=== PATIENT | male | born 1950 | race Caucasian/White ===

== ENCOUNTER 2020-10-21 20:17 | Emergency (ER) | payer MEDICARE, MEDICAID, SELFPAY ==
[2020-10-21 20:20] VITALS: BP 177/82; PULSE 75; RESP 16; TEMP 36.8; O2SAT 99; BMI 22.8
--- NOTE | 2020-10-21 20:29 | XR_ITS ---
EXAMINATION: XR CHEST CLINICAL INFORMATION: Shortness of breath COMPARISON: Chest x-ray 01/30/2020 TECHNIQUE: Frontal view of the chest was obtained. FINDINGS: Cardiac silhouette is normal in size. The lungs are well aerated. There is no lobar consolidation. No pleural effusion or pneumothorax. XR/XR chest 1V IMPRESSION: No acute pulmonary pathology.
--- NOTE | 2020-10-21 20:30 | ECG_ITS ---
Test Reason : SOB Blood Pressure : / mmHG Vent. Rate : 063 BPM Atrial Rate : 063 BPM P-R Int : 160 ms QRS Dur : 084 ms QT Int : 432 ms P-R-T Axes : 066 -06 052 degrees QTc Int : 442 ms Normal sinus rhythm Septal infarct , age undetermined Abnormal ECG When compared with ECG of 09-MAY-2019 21:31, No significant change was found Referred By: Diego Vivar Electronically Signed By:Jose G Guerrero
[2020-10-21] MEDS: 0.9 % Sodium Chloride 1,000 ML 999 ML IVCONT (20:50)
[2020-10-21 21:06] LABS: Eosinophils Percent Auto 0.4 % (0-4); Hemoglobin 13.3 g/dl (14.0-18.0); Imm Gran Abs Auto 0.01 X10*3/uL (0.00-0.03); Imm Gran Pct Auto 0.2 % (0.0-0.4); MANUAL DIFF FLAG SCAN; Neutrophils Percent Auto 57.6 % (45-73); PLT CLUMP 1; SCAN SMEAR FLAG 1
[2020-10-21 21:08] LABS: Basophils Percent Auto 0.4 % (0-2); Hematocrit 38.6 % (42-52); Lymphocytes Absolute Auto 1.7 X10*3/uL (1.2-4.9); Lymphocytes Percent Auto 33.9 % (20-40); Mean Corpuscular HGB Conc 34.5 g/dl (31.0-36.0); Mean Corpuscular Hemoglobin 31.6 pg (27.0-33.0); Mean Corpuscular Volume 91.7 fL (80-98); Mean Platelet Volume 10.7 fL (9.4-12.4); Monocytes Absolute Auto 0.4 X10*3/uL (0.1-1.2); Monocytes Percent Auto 7.5 % (2-11); Neutrophils Absolute Auto 2.9 X10*3/uL (2.0-8.3); Platelet Count 117 X10*3/uL (160-400); Red Blood Count 4.21 X10*6/uL (4.60-5.80); Red Cell Distribution Width 12.8 % (11.0-16.0); White Blood Count 5.1 X10*3/uL (4.8-10.8)
[2020-10-21 21:11] LABS: SLIDE REVIEW VERIFIED
[2020-10-21 21:22] VITALS: BP 177/88; PULSE 59; RESP 14; TEMP 36.8; O2SAT 97
[2020-10-21 21:50] LABS: Influenza A PCR NEGATIVE (Negative); Influenza B PCR NEGATIVE (Negative); Resp Syncy Virus RNA Qual PCR NEGATIVE (Negative); SARS COV2 PCR INHOUSE NEGATIVE (Negative)
[2020-10-21 22:01] LABS: Alanine Aminotransferase 34 U/L (0-40); Albumin Level 4.1 g/dL (3.5-5.0); Alkaline Phosphatase 64 U/L (39-117); Anion Gap 12 (12-20); Aspartate Amino Transferase 42 U/L (5-37); Bilirubin Direct 0.3 mg/dL (0.0-0.5); Bilirubin Total 0.6 mg/dL (0.0-1.0); Blood Urea Nitrogen 7 mg/dL (9-16); Calcium 8.2 mg/dL (8.4-10.2); Carbon Dioxide 26 mmol/L (22-29); Chloride 107 mmol/L (96-108); Creatinine Clr Calc Pharmacy 82.8; Estimated Glomerular Filt Rate > 60; Glucose Random 92 mg/dL (60-115); Potassium 4.1 mmol/l (3.3-5.1); Sodium 141 mmol/L (135-145)
--- NOTE | 2020-10-21 22:08 | ED.GENADULT ---
HPI - General Adult General Chief complaint: General Medical Stated complaint: SOB X'S 1WEEK, ? COVID Time Seen by Provider: 10/21/20 20:29 Source: patient Mode of arrival: EMS Limitations: no limitations History of Present Illness HPI narrative: Patient smoker complaining of shortness of breath for a while feels weak wants to know if anything else wrong smoker once COVID test. No fever no cough saturating 99% room air on arrival Onset (ago): week(s) Related Data Allergies Allergy/AdvReac Type Severity Reaction Status Date / Time No Known Allergies Allergy Unverified 07/25/20 15:48 [No Known Allergies*] Review of Systems Review of Systems: REVIEW OF SYSTEMS: Pertinent positives and negatives are stated above in the history. GEN: no fevers, chills, fatigue HEENT: no nasal congestion, sore throat, ear pain NEURO: no headache, dizziness, focal weakness PULM: Chronic cough and shortness of breath CV: no chest pain, palpitations, LE edema ABD: no abdominal pain, nausea, vomiting, diarrhea : no dysuria, urgency, frequency SKIN: no rash ROS otherwise negative x 10 PMFSH Social History Social History Alcohol intake: current Alcohol intake frequency: a few times a month Smoking Status: Current every day smoker Smoked in Last 30 Days: Yes Advance Directives: No Advance Directives Information Provided: No Physical Exam Vital Signs: Vital Signs: Last Vital Signs Temp 98.3 F 10/21/20 21: Pulse 59 10/21/20 21:22 Resp 14 10/21/20 21:22 BP 177/88 H 10/21/20 21:22 Pulse Ox 97 10/21/20 21:22 Body Mass Index 22.8 VITAL SIGNS: Reviewed. GENERAL: Well developed, well nourished, in no acute distress. HEAD: Normocephalic/atraumatic, EYES: PERRLA No pallor/icterus noted OROPHARYNX: Oral mucosa moist no oral lesions NECK: Supple, no adenopathy LUNGS: Normal breath sounds. No adventitious sounds or accessory muscle use CARDIOVASCULAR: Regular rate and rhythm without noted murmurs, no JVD or lower extremity edema. ABDOMEN: Soft, non-tender, non-distended with normal bowel sounds. No rigidity. No guarding. No palpable masses or hernias noted MUSCULOSKELETAL: No tenderness, deformities, EXTREMITIES: No cyanosis or edema. SKIN: no rashes, ulcerations, jaundice, pallor, or petechiae NEUROLOGIC: Alert and oriented x 3. Strength and sensation to light touch were grossly intact normal speech Medical Decision Making MDM Narrative Medical decision making narrative: Patient with nonspecific complaints complaining of shortness of breath was saturating 99% chronic smoker no acute pathology found COVID testing and negative will discharge patient home Lab Data Lab results reviewed: Yes I reviewed the patient's lab results. Result diagrams: 10/21/20 20:50 10/21/20 21:33 Labs: Lab Results 10/21/20 10/21/20 10/21/20 Range/Units 20:50 20:50 20:50 WBC 5.1 (4.8-10.8) X10*3/uL RBC 4.21 L (4.60-5.80) X10*6/uL Hgb 13.3 L (14.0-18.0) g/dl Hct 38.6 L (42-52) % MCV 91.7 (80-98) fL MCH 31.6 (27.0-33.0) pg MCHC 34.5 (31.0-36.0) g/dl RDW 12.8 (11.0-16.0) % Plt Count 117 L (160-400) X10*3/uL MPV 10.7 (9.4-12.4) fL Immature Gran % (Auto) 0.2 (0.0-0.4) % Neut % (Auto) 57.6 (45-73) % Lymph % (Auto) 33.9 (20-40) % [place] % (Auto) 7.5 (2-11) % Eos % (Auto) 0.4 (0-4) % Baso % (Auto) 0.4 (0-2) % Lymph # (Auto) 1.7 (1.2-4.9) X10*3/uL [place] # (Auto) 0.4 (0.1-1.2) X10*3/uL Eos # (Auto) 0.0 (0.0-0.4) X10*3/uL Baso # (Auto) 0.0 (0.0-0.2) X10*3/uL Abs Immat Gran (auto) 0.01 (0.00-0.03) X10*3/uL Absolute Neuts (auto) 2.9 (2.0-8.3) X10*3/uL Absolute Nucleated RBC 0.000 (0.0-0.012) X10*3/uL Nucleated RBC % (auto) 0.0 (0.0-0.2) /100WBC Smear Tech's Comments VERIFIED Sodium Cancelled Potassium Cancelled Chloride Cancelled Carbon Dioxide Cancelled Anion Gap Cancelled BUN Cancelled Creatinine Cancelled Estim Creat Clear Calc Cancelled Estimated GFR Cancelled Random Glucose Cancelled Calcium Cancelled Total Bilirubin Cancelled Direct Bilirubin Cancelled AST Cancelled ALT Cancelled Alkaline Phosphatase Cancelled Total Protein Cancelled Albumin Cancelled Coronavirus (PCR) NEGATIVE (Negative) Influenza Type A (PCR) NEGATIVE (Negative) Influenza Type B (PCR) NEGATIVE (Negative) RSV RNA Qual (PCR) NEGATIVE (Negative) 10/21/20 Range/Units 21:33 WBC (4.8-10.8) X10*3/uL RBC (4.60-5.80) X10*6/uL Hgb (14.0-18.0) g/dl Hct (42-52) % MCV (80-98) fL MCH (27.0-33.0) pg MCHC (31.0-36.0) g/dl RDW (11.0-16.0) % Plt Count (160-400) X10*3/uL MPV (9.4-12.4) fL Immature Gran % (Auto) (0.0-0.4) % Neut % (Auto) (45-73) % Lymph % (Auto) (20-40) % [place] % (Auto) (2-11) % Eos % (Auto) (0-4) % Baso % (Auto) (0-2) % Lymph # (Auto) (1.2-4.9) X10*3/uL [place] # (Auto) (0.1-1.2) X10*3/uL Eos # (Auto) (0.0-0.4) X10*3/uL Baso # (Auto) (0.0-0.2) X10*3/uL Abs Immat Gran (auto) (0.00-0.03) X10*3/uL Absolute Neuts (auto) (2.0-8.3) X10*3/uL Absolute Nucleated RBC (0.0-0.012) X10*3/uL Nucleated RBC % (auto) (0.0-0.2) /100WBC Smear Tech's Comments Sodium 141 Potassium 4.1 Chloride 107 Carbon Dioxide 26 Anion Gap 12 BUN 7 L Creatinine 0.77 Estim Creat Clear Calc 82.8 Estimated GFR > 60 Random Glucose 92 Calcium 8.2 L Total Bilirubin 0.6 Direct Bilirubin 0.3 AST 42 H ALT 34 Alkaline Phosphatase 64 Total Protein 7.0 Albumin 4.1 Coronavirus (PCR) (Negative) Influenza Type A (PCR) (Negative) Influenza Type B (PCR) (Negative) RSV RNA Qual (PCR) (Negative) ECG Data Attestation: I personally reviewed and interpreted this ECG as follows: Interpretation: Normal sinus rhythm with heart rate 63 beats per minute normal intervals normal axis poor progression of R-waves no acute ST T wave changes no acute ischemia no significant change from the previous EKG
[2020-10-21] MEDS: Albuterol Sulfate 90 MCG 8 GM INHALER 2 PUFF INHALE (23:20)
[2020-10-21 23:22] VITALS: PULSE 69; O2SAT 100
[2020-10-21] MEDS: predniSONE 20 MG TABLET 40 MG PO (23:40)
== END 2020-10-21 23:55 | disposition home or self-care (01) ==
PROVIDERS: Emergency Provider Internal Medicine
DX: Z20.828 Contact with and (suspected) exposure to other viral communicable diseases (principal); F17.200 Nicotine dependence, unspecified, uncomplicated; R06.02 Shortness of breath
CPT/HCPCS: 0241U; 36415; 71045; 80048; 80076; 85025; 93005; 94640; 96360; 99284

== ENCOUNTER 2025-05-17 12:15 | Emergency (ER) | payer MEDICARE, SELFPAY ==
--- NOTE | ~2025-05-17 | XR_ITS ---
EXAMINATION: XR CHEST 2 VIEWS HISTORY: shortness of breath COMPARISON: Comparison is made with the prior examination dated 10/21/2020. FINDINGS: PA and lateral views of the chest are submitted. The lungs are expanded and clear. There is no pleural effusion, pneumothorax, or pulmonary vascular congestion. The heart is normal in size. There is degenerative disc disease of the spine. XR/XR chest 2V IMPRESSION: No acute cardiopulmonary abnormality. Electronically signed by: Martir Owens MD 05/17/2025 01:16 PM EDT
[2025-05-17 12:33] VITALS: BP 156/87; PULSE 81; RESP 16; TEMP 36.8; O2SAT 99; BMI 20.4
--- NOTE | 2025-05-17 12:33 | ED_ITS ---
HPI - SOB/Dyspnea General Chief Complaint: General Medical Stated Complaint: sob Time Seen by Provider: 05/17/25 16:15 Source: patient, RN notes reviewed and old records reviewed Mode of arrival: ambulatory Limitations: no limitations History of Present Illness ED Provider: Esteban MCCLENDON Narrative: 74-year-old male past medical history significant for COPD presents for evaluation of general malaise. At the time of my evaluation the patient complains of fatigue and ?feeling weak and tired for at least a few weeks. ? He denies any chest pain, shortness of breath, fevers, chills. He reports that he did initially have some chest pain at some point over the last few days but you can not remember exactly when Denies any leg swelling. He denies any recent travel He denies any abdominal pain, nausea vomiting, diarrhea. Denies any headaches Denies any recent weight loss Related Data Home Medications ?Medication ?Instructions ?Recorded ?Confirmed alprazolam 0.25 mg tablet 0.25 mg PO QAM 10/22/2010/08 paroxetine HCl 10 mg tablet 10 mg PO DAILY 10/22/20 Previous Rx's ?Medication ?Instructions ?Recorded albuterol sulfate 90 mcg/actuation 2 puff inhalation Q 6H PRN 10/21/20 aerosol inhaler shortness of breath or wheez ing #18 grams doxycycline hyclate 100 mg capsule 100 mg PO BID #20 c aps 10/21/20 prednisone 20 mg tablet 40 mg (2 x 20 mg) PO DAILY # 10 tabs 10/21/20 Allergies Allergy/AdvReac Type Severity Reaction Status Date / Time No Known Allergies (No Known Allergy Verified 05/17/25 12:33 Allergies*) Review of Systems 2 Constitutional: Constitutional: Denies body ache(s), Denies chills, Reports fatigue, Denies fever(s), Denies frequent falls, Reports lethargy, Reports malaise and Reports weakness Eyes: Eyes: Denies blurry vision ENT: Denies vertigo and Denies dizziness Cardiovascular: Cardiovascular: Reports chest pain and Denies dyspnea on exertion Respiratory: Respiratory: Denies cough and Denies dyspnea on exertion Gastrointestinal: Gastrointestinal: Denies abdominal pain, Denies nausea and Denies vomiting Musculoskeletal: Musculoskeletal: Denies back pain Integumentary/Breasts: Skin/Breast: Denies rash Neurologic: Denies vertigo, Denies dizziness, Denies frequent falls and Reports weakness Psychiatric: Psychiatric: Denies anxiety Endocrine: Endocrine: Reports fatigue PMFSH Social History Social History Alcohol intake: current Alcohol intake frequency: a few times a month Smoked in Last 30 Days: Yes Use of substances other than those prescribed or required for medical reasons: No Advance Directives: No Advance Directives Information Provided: Yes Do you have a plan to hurt others: No Plan Physical Exam 2 Vital Signs: Vital Signs: Last Vital Signs Temp 97.9 F 05/17/25 17:36 Pulse 61 05/17/25 17:36 Resp 16 05/17/25 17:36 BP 153/76 H 05/17/25 17:36 Pulse Ox 98 05/17/25 17:36 O2 Del Method Room Air 05/17/25 17:36 BMI result Body Mass Index 20.4 Const: General: healthy appearing, comfortable, no acute distress, alert and awake Nutritional Appearance: well nourished Orientation/consciousness: p atient oriented x3 HEENT: Head: Yes normocephalic and Yes atraumatic Eyes: Eyelids: Yes eyelids normal Conjunctivae: conjunctivae normal S clerae: sclerae normal Corneas: corneas normal Pupils: Equal, round and reactive pupils present EOM: EOMs intact bilaterally Neck: Neck: Yes full ROM Resp: Effort & Inspection: normal respiratory effort, able to speak in complete sentences, no audible wheezes and not labored Auscultation: clear to auscultation bilaterally Cardio: Rate: regular rate Rhythm: regular rhythm GI: Inspection: No distended Palpation (GI): Soft to palpation, not firm, nontender, no guarding and not rigid Skin: General skin exam: elasticity normal Neuro: General: patient oriented x3 Cranial nerves: Yes Equal, round and reactive pupils present and Yes Bilaterally intact EOM present Cognition (Neuro): normal cognition Course Course Course Narrative: This is an RME: Additional HPI, ROS, PE not included below will be deferred to primary provider. RME assessment and note performed by: Domonique Ye PA-C This is a 72-ifro-bvm-male, with a past medical history COPD, current smoker 50 pack year history, who presents to the ER with concerns of my health . Reports the heat and his smoking is concerning for him. Reports that he has felt very tired and weak for the last couple of years. He has no chest pain or shortness of breath - but does report that this comes and goes. Does not currently see a doctor, last seen over 3 years ago. BP mildly elevated at 156/87, all other vital signs stable. He is speaking in full sentences under no acute distress Plan: Labs, EKG, CXR further ER eval needed Medical Decision Making Medical Decision Making [facility] Narrative: 74-year-old male past medical history significant for COPD presents for evaluation of a complaints. He mostly complains of weakness and fatigue. He does endorse some chest pain over the last few days but is fairly nonspecific regarding this. He has no known coronary artery disease. His EKG shows a normal sinus rhythm with a rate of [address] segment elevation depression or elevation. Nondiagnostic EKG. Labs show a mild pancytopenia with a white count of 4.2, hemoglobin hematocrit of 13.4 and 38.1 respectively, [place] [address]. All these labs seem fairly consistent but marginally lower than his labs from 5 years ago in October of 2020. There was no significant left shift, less likely infectious process. The patient's chemistries show no significant electrolyte abnormalities, renal function within normal limits. His AST and ALT are slightly elevated of unclear etiology. The patient's initial troponin was elevated to 41.6 with a repeat a 40.1 and flat. Given that he has no active chest pain, nondiagnostic EKG in flat troponins he rules out for ACS. His BNP is slightly elevated to 194 but he has no lower extremity edema, chest x-ray without infiltrates, pulmonary edema or pleural effusions. Viral swabs negative. The patient will be discharged to follow up with the outpatient providers, Differential Diagnosis Differential Diagnoses: The differential diagnosis associated with the presentation includes CHF ACS Chest pain Viral syndrome Costochondritis Wellness visit Admission/Observation Consideration of admission/observation: Escalation of care including admission/observation considered Patient had an initial elevated troponin but not acutely ischemic EKG and rules out for ACS with a flat troponin and no chest pain. He does not require admission at this time Lab Data [facility] Lab Attestation statement: I reviewed the patient's lab results. As above 05/17/25 12:52 05/17/25 12:52 Labs: Lab Results 05/17/25 05/17/25 Range/Units 12:52 16:26 WBC 4.2 L (4.8-10.8) X10*3/uL RBC 4.23 L (4.60-5.80) X10*6/uL Hgb 13.4 L (14.0-18.0) g/dl Hct 38.1 L (42.0-52.0) % MCV 90.1 (80.0-98.0) fL MCH 31.7 (27.0-33.0) pg MCHC 35.2 (31.0-36.0) g/dl RDW 13.2 (11.0-16.0) % Plt Count 98 L (160-400) X10*3/uL MPV 11.0 (9.4-12.4) fL Immature Gran % (Auto) 0.2 (0.0-0.4) % Neut % (Auto) 57.2 (45-73) % Lymph % (Auto) 31.7 (20-40) % [place] % (Auto) 9.5 (2-11) % Eos % (Auto) 0.7 (0-4) % Baso % (Auto) 0.7 (0-2) % Lymph # (Auto) 1.3 (1.2-4.9) X10*3/uL [place] # (Auto) 0.4 (0.1-1.2) X10*3/uL Eos # (Auto) 0.0 (0.0-0.4) X10*3/uL Baso # (Auto) 0.0 (0.0-0.2) X10*3/uL Abs Immat Gran (auto) 0.01 (0.00-0.03) X10*3/uL Absolute Neuts (auto) 2.4 (2.0-8.3) x10*3/uL Absolute Nucleated RBC 0.000 (0.0-0.012) X10*3/uL Nucleated RBC % (auto) 0.0 (0.0-0.2) /100WBC Smear Tech's Comments VERIFIED Sodium 141 (135-145) mmol/L Potassium 4.1 (3.3-5.1) mmol/L Chloride 108 (96-108) mmol/L Carbon Dioxide 26 (22-29) mmol/L Anion Gap 11 L (12-20) BUN 14 (9-16) mg/dL Creatinine 0.92 (0.5-1.4) mg/dL Estim Creat Clear Calc 60.5 Estimated GFR > 60 Random Glucose 88 (60-115) mg/dL Calcium 9.1 D (8.4-10.2) mg/dL Magnesium 1.8 (1.6-2.6) mg/dL Total Bilirubin 0.6 (0.0-1.0) mg/dL Direct Bilirubin 0.3 (0.0-0.5) mg/dL AST 91 H (5-37) U/L ALT 54 H (0-40) U/L Alkaline Phosphatase 71 (39-117) U/L Troponin I High Sens 41.6 H 40.1 H (<3.5-35.0) ng/L B-Natriuretic Peptide 194 H (<100) pg/mL Total Protein 7.1 (6.5-8.0) g/dL Albumin 4.0 (3.5-5.0) g/dL Influenza Type A (PCR) NEGATIVE (Negative) Influenza Type B (PCR) NEGATIVE (Negative) RSV RNA Qual (PCR) NEGATIVE (Negative) SARS-CoV-2 RNA (RT-PCR) NEGATIVE (Negative) Independent Interpretation I performed an independent interpretation of an: EKG (Normal sinus rhythm with a rate of 68 beats per minute. No ST segment elevation [place]) and Plain X-Ray (Agree with Radiology interpretation, no focal infiltrates) Radiology Impression Discussion of test interpretation with radiology: I have reviewed the radiologist's reading. Radiologist Impression: FINDINGS: PA and lateral views of the chest are submitted. The lungs are expanded and clear. There is no pleural effusion, pneumothorax, or pulmonary vascular congestion. The heart is normal in size. There is degenerative disc disease of the spine. XR/XR chest 2V IMPRESSION: No acute cardiopulmonary abnormality. Electronically signed by: Martir Owens MD 05/17/2025 01:16 PM EDT RP Discharge Plan Discharge Clinical Impression: Fatigue Patient Disposition: Home, Self-Care Instructions: Fatigue (ED) Additional Instructions: Your workup in the ER today was reassuring. This includes your blood work, EKG, chest x-ray pain You do not have COVID, influenza, or RSV. Follow-up with your primary doctor, return for new or worsening symptoms Prescriptions: No Action prednisone 20 mg tablet 40 mg PO DAILY Qty: 10 0RF albuterol sulfate 90 mcg/actuation HFA aerosol inhaler 2 puff inhalation Q6H PRN (Reason: shortness of breath or wheezing) Qty: 18 0RF doxycycline hyclate 100 mg capsule 100 mg PO BID Qty: 20 0RF paroxetine HCl 10 mg tablet 10 mg PO DAILY alprazolam 0.25 mg tablet 0.25 mg PO QAM Interventions: ED Discharge Assessment Last Done: 05/17/25 17:36 Print Language: Tajik
--- NOTE | 2025-05-17 12:38 | ECG_ITS ---
Test Reason : fatigue Blood Pressure : */* mmHG Vent. Rate : 68 BPM Atrial Rate : 68 BPM P-R Int : 144 ms QRS Dur : 90 ms QT Int : 410 ms P-R-T Axes : 62 -32 60 degrees QTcB Int : 435 ms Normal sinus rhythm Left axis deviation Possible Anteroseptal infarct (cited on or before 21-Oct-2020) Abnormal ECG When compared with ECG of 21-Oct-2020 21:12, Questionable change in initial forces of Anterior leads Referred By: Domonique Ye Electronically Signed By: Jose G Guerrero
[2025-05-17 13:02] LABS: Hemoglobin 13.4 g/dl (14.0-18.0); Imm Gran Abs Auto 0.01 X10*3/uL (0.00-0.03); Imm Gran Pct Auto 0.2 % (0.0-0.4); MANUAL DIFF FLAG SCAN; NRBC Abs Auto 0.000 X10*3/uL (0.0-0.012); NRBC Pct Auto 0.0 /100WBC (0.0-0.2); PLT CLUMP 1; SCAN SMEAR FLAG 1
[2025-05-17 13:03] LABS: Hematocrit 38.1 % (42.0-52.0); Lymphocytes Absolute Auto 1.3 X10*3/uL (1.2-4.9); Mean Corpuscular HGB Conc 35.2 g/dl (31.0-36.0); Mean Corpuscular Hemoglobin 31.7 pg (27.0-33.0); Mean Corpuscular Volume 90.1 fL (80.0-98.0); Red Blood Count 4.23 X10*6/uL (4.60-5.80)
[2025-05-17 13:08] LABS: White Blood Count 4.2 X10*3/uL (4.8-10.8)
[2025-05-17 13:16] LABS: Alanine Aminotransferase 54 U/L (0-40); Albumin Level 4.0 g/dL (3.5-5.0); Alkaline Phosphatase 71 U/L (39-117); Anion Gap 11 (12-20); Aspartate Amino Transferase 91 U/L (5-37); Blood Urea Nitrogen 14 mg/dL (9-16); Calcium 9.1 mg/dL (8.4-10.2); Carbon Dioxide 26 mmol/L (22-29); Chloride 108 mmol/L (96-108); Creatinine Clr Calc Pharmacy 60.5; Estimated Glomerular Filt Rate > 60; Magnesium 1.8 mg/dL (1.6-2.6); Potassium 4.1 mmol/L (3.3-5.1); Sodium 141 mmol/L (135-145); Total Protein 7.1 g/dL (6.5-8.0)
[2025-05-17 13:20] LABS: Platelet Count 98 X10*3/uL (160-400)
[2025-05-17 13:22] LABS: B Type Natriuretic Peptide 194 pg/mL (<100); Troponin-I High Sensitivity 41.6 ng/L (<3.5-35.0)
[2025-05-17 13:53] LABS: Resp Syncy Virus RNA Qual PCR NEGATIVE (Negative); SARS COV2 PCR INHOUSE NEGATIVE (Negative)
[2025-05-17 16:00] VITALS: BP 177/126; PULSE 61; RESP 18; TEMP 36.6; O2SAT 99
--- NOTE | 2025-05-17 16:11 | PC.NURSE ---
74 M presents to ED with SOB x a couple of weeks, RR even and unlabored, sts comes and goes. Pt denies any pain or discomfort at this time. A+Ox4 and ambulatory.
[2025-05-17 16:54] LABS: Troponin-I High Sensitivity 40.1 ng/L (<3.5-35.0)
[2025-05-17 17:33] VITALS: BP 153/76; PULSE 61; RESP 16; TEMP 36.6; O2SAT 98
[2025-05-17 17:36] VITALS: BP 153/76; PULSE 61; RESP 16; TEMP 36.6; O2SAT 98
== END 2025-05-17 17:39 | disposition home or self-care (01) ==
PROVIDERS: Physician Assistant Medical; Emergency Provider Emergency Medicine Emergency Medical Services
DX: R06.02 Shortness of breath (principal); R53.81 Other malaise; R53.83 Other fatigue; F17.210 Nicotine dependence, cigarettes, uncomplicated; Z79.899 Other long term (current) drug therapy; I10 Essential (primary) hypertension
CPT/HCPCS: 36415; 71046; 80048; 80076; 83735; 83880; 84484; 85025; 87637; 93005; 99283; 99284

== ENCOUNTER → 2025-05-17 12:38 | Outpatient (BNV) | payer MEDICARE, SELFPAY | PROVIDERS: Emergency Provider Emergency Medicine Emergency Medical Services; Visit Provider Internal Medicine Cardiovascular Disease | DX: R94.31 Abnormal electrocardiogram [ECG] [EKG] (principal); R53.83 Other fatigue | CPT/HCPCS: 93010 ==

== ENCOUNTER → 2025-05-17 12:39 | Outpatient (BNV) | payer MEDICARE, MEDICAID, SELFPAY | PROVIDERS: Visit Provider Radiology Diagnostic Radiology | DX: R06.02 Shortness of breath (principal) | CPT/HCPCS: 71046 ==

== ENCOUNTER 2025-10-19 18:33 | Emergency (ER) | payer MEDICARE, SELFPAY ==
--- NOTE | ~2025-10-19 | CT_ITS ---
CLINICAL HISTORY: abd pain, n v d CT abdomen and pelvis with contrast Comparison: None provided Findings: There is minimal dependent atelectasis. The liver, gallbladder, pancreas, spleen, and adrenal glands are unremarkable. There is a small left renal cyst. Kidneys are otherwise unremarkable. The appendix is normal. There is fluid within the rectum compatible with a diarrheal illness. There is no evidence of colitis. The stomach and small bowel are unremarkable. There is no free fluid or free air. There are no enlarged lymph nodes. The aorta is normal in diameter. The bladder and prostate are unremarkable. There are degenerative changes in the lumbar spine. There is lumbar dextroscoliosis. There is no fracture or suspicious lytic or sclerotic lesion. IMPRESSION: Fluid within the rectum compatible with a diarrheal illness. No evidence of colitis. This document has been electronically signed by: Ko Castillo MD on 10/19/2025 21:27:11
[2025-10-19 18:38] VITALS: BP 170/92; PULSE 99; O2SAT 98
--- NOTE | 2025-10-19 18:39 | ED_ITS ---
HPI - General Adult General Chief complaint: Nausea/Vomiting/Diarrhea Stated complaint: Urinary/bowel incontinence Time Seen by Provider: 10/19/25 18:38 Source: patient and RN notes reviewed Limitations: no limitations History of Present Illness HPI narrative: 75-year-old male who has a history of COPD, presents for evaluation of a 2 day history diarrhea, urinary frequency and incontinence. Patient states he feels as though he may have eaten food that may have been bad. Patient states he has had frequent episodes of loose watery stool. He did have 1 episode of nausea and vomiting yesterday. He is currently not nauseous. He does report urinary frequency as well as urinary incontinence. He has had intermittent crampy abdominal pain. He denies any abdominal pain at this time. No fevers or chills. No sick contacts. Decreased p.o. intake. Related Data Home Medications ?Medication ?Instructions ?Recorded ?Confirmed alprazolam 0.25 mg tablet 0.25 mg PO QAM 10/22/2010/08 paroxetine HCl 10 mg tablet 10 mg PO DAILY 10/22/20 Previous Rx's ?Medication ?Instructions ?Recorded albuterol sulfate 90 mcg/actuation 2 puff inhalation Q 6H PRN 10/21/20 aerosol inhaler shortness of breath or wheez ing #18 grams doxycycline hyclate 100 mg capsule 100 mg PO BID #20 c aps 10/21/20 prednisone 20 mg tablet 40 mg (2 x 20 mg) PO DAILY # 10 tabs 10/21/20 amoxicillin 875 mg-potassium 1 tab PO BID 7 days #14 t abs 10/19/25 clavulanate 125 mg tablet loperamide 2 mg capsule 2 mg PO Q6H PRN loose stool #20 10/19/25 (Anti-Diarrheal (loperamide)) caps ondansetron 4 mg disintegrating 4 mg PO Q8H PRN nausea and 10/19/25 tablet vomiting #12 tabs Allergies Allergy/AdvReac Type Severity Reaction Status Date / Time No Known Allergies (No Known Allergy Verified 10/19/25 19:21 Allergies*) Review of Systems 2 Review of Systems: Yes all other systems are reviewed and are negative Constitutional: Constitutional: Denies body ache(s) and Denies chills Respiratory: Respiratory: Denies cough Gastrointestinal: Gastrointestinal: Denies coffee ground emesis, Denies constipation, Reports GI cramping, Reports diarrhea, Reports loose stools, Reports vomiting and Denies hematemesis [facility] Social History Social History Alcohol intake: current Alcohol intake frequency: a few times a month Advance Directives: No Advance Directives Information Provided: Yes Do you have a plan to hurt others: No Plan Physical Exam ED Vital Signs: Vital Signs - 24 hr 10/19/25 19:20 10/19/25 20:00 10/19/25 22:15 Temperature 97.9 F 98.4 F 98.4 F Pulse Rate 74 70 64 Respiratory Rate 18 20 18 Blood Pressure 150/87 H 156/80 H 179/92 H Pulse Oximetry 98 96 96 Oxygen Delivery Method Room Air Room Air Room Air 10/19/25 23:15 Temperature 98.4 F Pulse Rate 64 Respiratory Rate 18 Blood Pressure 179/92 H Pulse Oximetry 96 Oxygen Delivery Method Room Air BMI result Body Mass Index 20.0 Const General: cooperative, alert and awake Resp Effort & Inspection: normal respiratory effort Auscultation: clear to auscultation bilaterally Cardio Palpation: normal PMI Rate: regular rate GI Other: Abdomen is soft and mildly diffusely tender throughout. No peritoneal signs. No CVAT. Extrem Other: No calf tenderness or pedal edema bilaterally Course Course Course Narrative: October 19, 2025, 7:45 p.m. glucose returned slightly decreased at 58. Patient is hemodynamically stable and mentating without difficulty at this time. We will continue to monitor. NPO at this time while waiting for CT. LFTs are elevated, check hepatic profile. Patient was given 12.5 g of dextrose. Repeat glucose is 81. Patient tolerated IV fluids. He has not had any further nausea or vomiting while in the emergency department. The patient was able to have a loose stool but was unable to be collected. 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 Reassessment in his abdomen is soft without tenderness. Patient was able to tolerate crackers and liquids while in the emergency department without any vomiting. He feels comfortable with discharge plan home. Reviewed all labs and imaging. Has a precaution patient will be placed on antibiotics. Patient expresses understanding of all discharge instructions and has no further questions at this time. Medications Administered Discontinued Medications Generic Name Dose Route Start Last Admin Trade Name Bianca PRN Reason Stop Dose Admin Amoxicillin/Clavulanate Potassium 875 mg 10/19/25 22:11 10/19/25 22:19 Amoxicillin/Potassium Clav 875 Mg Tablet PO 10/19/25 22:12 875 mg ONCE ONE Administration Dextrose 12.5 gm 10/19/25 19:59 10/19/25 20:19 Dextrose 50 % 25 Gm/50 Ml Syringe IVPUSH 10/19/25 20:00 12.5 gm ONCE ONE Administration Sodium Chloride 1,000 mls @ 999 mls/hr 10/19/25 19:00 10/19/25 21:11 Ns IV 10/19/25 20:00 Infused .Q1H1M MICHAEL Infusion Sodium Chloride 1,000 mls @ 999 mls/hr 10/19/25 22:15 10/19/25 22:21 Ns IV 10/19/25 23:15 999 mls/hr .Q1H1M MICHAEL Administration Iohexol 100 ml 10/19/25 20:37 10/19/25 20:37 Iohexol 350 Mg/Ml 100 Ml Infus..Btl IV 10/19/25 20:38 85 ml ONCE ONE Administration Medical Decision Making Medical Decision Making MDM Narrative: 75-year-old male with a history of COPD, presents for evaluation of a 2 day history of diarrhea, urinary frequency and urinary incontinence. Check labs, abdominal CT, IV fluids. Differential Diagnosis Differential Diagnoses: The differential diagnosis associated with the presentation includes Bowel obstruction Colitis Dehydration Metabolic abnormality Diverticulitis UTI Admission/Observation Consideration of admission/observation: Escalation of care including admission/observation considered Lab Data MDM Lab Attestation statement: I reviewed the patient's lab results. 10/19/25 19:17 10/19/25 19:17 Labs: Lab Results 10/19/25 10/19/25 10/19/25 Range/Units 19:17 21:00 21:53 WBC 4.8 (4.8-10.8) X10*3/uL RBC 4.58 L (4.60-5.80) X10*6/uL Hgb 14.5 (14.0-18.0) g/dl Hct 42.4 (42.0-52.0) % MCV 92.6 (80.0-98.0) fL MCH 31.7 (27.0-33.0) pg MCHC 34.2 (31.0-36.0) g/dl RDW 13.0 (11.0-16.0) % Plt Count 106 L (160-400) X10*3/uL MPV 10.5 (9.4-12.4) fL Immature Gran % (Auto) 0.2 (0.0-0.4) % Neut % (Auto) 62.5 (45-73) % Lymph % (Auto) 24.4 (20-40) % Sebastian % (Auto) 11.3 H (2-11) % Eos % (Auto) 0.8 (0-4) % Baso % (Auto) 0.8 (0-2) % Lymph # (Auto) 1.2 (1.2-4.9) X10*3/uL Sebastian # (Auto) 0.5 (0.1-1.2) X10*3/uL Eos # (Auto) 0.0 (0.0-0.4) X10*3/uL Baso # (Auto) 0.0 (0.0-0.2) X10*3/uL Abs Immat Gran (auto) 0.01 (0.00-0.03) X10*3/uL Absolute Neuts (auto) 3.0 (2.0-8.3) x10*3/uL Absolute Nucleated RBC 0.000 (0.0-0.012) X10*3/uL Nucleated RBC % (auto) 0.0 (0.0-0.2) /100WBC Sodium 137 (135-145) mmol/L Potassium 4.1 (3.3-5.1) mmol/L Chloride 104 (96-108) mmol/L Carbon Dioxide 19 L (22-29) mmol/L Anion Gap 18 (12-20) BUN 18 H (9-16) mg/dL Creatinine 0.93 (0.5-1.4) mg/dL Estim Creat Clear Calc 63.3 Estimated GFR > 60 POC Glucose 81 (60-115) mg/dL Random Glucose 58 L* (60-115) mg/dL Lactic Acid 1.4 (0.5-2.0) mmol/L Calcium 9.4 (8.4-10.2) mg/dL Total Bilirubin 1.5 H (0.0-1.0) mg/dL AST 148 H (5-37) U/L ALT 68 H (0-40) U/L Alkaline Phosphatase 73 (39-117) U/L Total Protein 7.4 (6.5-8.0) g/dL Albumin 4.2 (3.5-5.0) g/dL Lipase 34 (8-78) U/L Urine Color Yellow Urine Appearance Clear Urine pH 6.0 (5.0-9.0) Ur Specific [place] >= 1.030 H (1.005-1.025) Urine Protein Trace (Neg-Trace) mg/dL Urine Glucose (UA) Negative (Negative) mg/dL Urine Ketones 40 (Negative) mg/dL Urine Blood Negative (Negative) Urine Nitrite Negative (Negative) Ur Leukocyte Esterase Negative (Negative) Prescription Management I considered prescription management with: Antibiotic Chronic Conditions Patient?s care impacted by: Hypertension Discharge Plan Discharge Clinical Impression: Diarrhea Qualifiers: Diarrhea type: presumed infectious Qualified Code(s): R19.7 - Diarrhea, unspecified Clinical Impression: (Ruled Out): Dehydration Patient Disposition: Home, Self-Care Instructions: Acute Diarrhea (ED), Acute Abdominal Pain (ED) Additional Instructions: Clear liquids. [place] diet. Gradually advance. Bananas. White rice. Applesauce. Plain toast. Loperamide as directed to help with diarrhea. Augmentin as directed. Finish all antibiotics. Zofran as directed for nausea. Follow-up with your primary care provider. Call this week to schedule a follow-up appointment. Return to the emergency department if you have any worsening of symptoms, or any concerns. Get well soon! Prescriptions: New amoxicillin-pot clavulanate 875-125 mg tablet 1 tab PO BID 7 Days Qty: 14 0RF loperamide [Anti-Diarrheal (loperamide)] 2 mg capsule 2 mg PO Q6H PRN (Reason: loose stool) Qty: 20 0RF ondansetron 4 mg tablet,disintegrating 4 mg PO Q8H PRN (Reason: nausea and vomiting) Qty: 12 0RF No Action prednisone 20 mg tablet 40 mg PO DAILY Qty: 10 0RF albuterol sulfate 90 mcg/actuation HFA aerosol inhaler 2 puff inhalation Q6H PRN (Reason: shortness of breath or wheezing) Qty: 18 0RF doxycycline hyclate 100 mg capsule 100 mg PO BID Qty: 20 0RF paroxetine HCl 10 mg tablet 10 mg PO DAILY alprazolam 0.25 mg tablet 0.25 mg PO QAM Interventions: ED Discharge Assessment Last Done: 10/19/25 23:15 Discharge Date/Time: 10/19/25 23:28 Print Language: Jordanian
[2025-10-19 19:20] VITALS: BP 150/87; PULSE 74; RESP 18; TEMP 36.6; O2SAT 98
[2025-10-19 19:21] LABS: MANUAL DIFF FLAG NO
[2025-10-19 19:41] LABS: Alanine Aminotransferase 68 U/L (0-40); Albumin Level 4.2 g/dL (3.5-5.0); Alkaline Phosphatase 73 U/L (39-117); Anion Gap 18 (12-20); Aspartate Amino Transferase 148 U/L (5-37); Blood Urea Nitrogen 18 mg/dL (9-16); Calcium 9.4 mg/dL (8.4-10.2); Carbon Dioxide 19 mmol/L (22-29); Chloride 104 mmol/L (96-108); Creatinine Clr Calc Pharmacy 63.3; Estimated Glomerular Filt Rate > 60; Lipase 34 U/L (8-78); Potassium 4.1 mmol/L (3.3-5.1); Sodium 137 mmol/L (135-145); Total Protein 7.4 g/dL (6.5-8.0)
[2025-10-19 19:51] LABS: Hematocrit 42.4 % (42.0-52.0); Hemoglobin 14.5 g/dl (14.0-18.0); Imm Gran Abs Auto 0.01 X10*3/uL (0.00-0.03); Imm Gran Pct Auto 0.2 % (0.0-0.4); Lymphocytes Absolute Auto 1.2 X10*3/uL (1.2-4.9); Mean Corpuscular HGB Conc 34.2 g/dl (31.0-36.0); Mean Corpuscular Hemoglobin 31.7 pg (27.0-33.0); Mean Corpuscular Volume 92.6 fL (80.0-98.0); NRBC Abs Auto 0.000 X10*3/uL (0.0-0.012); NRBC Pct Auto 0.0 /100WBC (0.0-0.2); Platelet Count 106 X10*3/uL (160-400); Red Blood Count 4.58 X10*6/uL (4.60-5.80); White Blood Count 4.8 X10*3/uL (4.8-10.8)
[2025-10-19 20:00] VITALS: BP 156/80; PULSE 70; RESP 20; TEMP 36.9; O2SAT 96
[2025-10-19] MEDS: iohexoL 350 MG/ML 100 ML INFUS..BTL IV (20:37)
[2025-10-19 21:03] LABS: Glucose, Whole Blood 81 mg/dL (60-115)
[2025-10-19 21:59] LABS: Appearance Urine Clear; Glucose Urine UA Negative (Negative); PH 6.0 (5.0-9.0); Specific Gravity - Urine >= 1.030 (1.005-1.025)
[2025-10-19 22:15] VITALS: BP 179/92; PULSE 64; RESP 18; TEMP 36.9; O2SAT 96
[2025-10-19 23:15] VITALS: BP 179/92; PULSE 64; RESP 18; TEMP 36.9; O2SAT 96
== END 2025-10-19 23:28 | disposition home or self-care (01) ==
PROVIDERS: Emergency Medicine; Physician Assistant; Emergency Provider Emergency Medicine
DX: R19.7 Diarrhea, unspecified (principal); I10 Essential (primary) hypertension
CPT/HCPCS: 36415; 74177; 80053; 81003; 82947; 83605; 83690; 85025; 96360; 96361; 96374; 96375; 99284; Q9967

== ENCOUNTER → 2025-10-19 18:52 | Outpatient (BNV) | payer OTHER, MEDICARE, SELFPAY | PROVIDERS: Emergency Provider Emergency Medicine; Visit Provider Radiology Diagnostic Radiology | DX: K62.89 Other specified diseases of anus and rectum (principal) | CPT/HCPCS: 74177 ==